=== PATIENT | female | born 1985 | race Caucasian/White ===

== ENCOUNTER 2024-06-05 22:40 | Emergency (ER) | payer BC ==
[2024-06-05] MEDS ORDERED: Bupivacaine PF 0.5% 30 ML VIAL ONE (23:32)
[2024-06-05] MEDS ORDERED: Lidocaine 1% PF 5 ML VIAL ONE (23:32)
== END 2024-06-05 23:47 | disposition home or self-care (01) ==
LOC: MADERS 22:40
DX: S60.151A Contusion of right little finger with damage to nail, initial encounter (principal); I10 Essential (primary) hypertension; W23.1XXA Caught, crushed, jammed, or pinched between stationary objects, initial encounter
CPT/HCPCS: 99283; J0665